=== PATIENT | male | born 1965 | race Caucasian/White ===

== ENCOUNTER → 2024-07-07 | Outpatient (CLI) | payer MEDICAID, SELFPAY ==
--- NOTE | 2024-07-07 13:45 | XR_ITS ---
Examination: MRI lumbar spine without contrast Date and time of exam: July 07, 2024 1357 hours Comparison December 09, 2021 INDICATIONS: Lower back pain radiating to both legs weakness in the leg 6 years after lifting injury Technique: Multiple MRI axial and sagittal sections lumbar spine. Sagittal T2-weighted images, TR 3500, TE 118 T1 weighted transverse sections, TR 688 T8.5, T2-weighted sagittal sections T1 weighted sagittal sections TR 621, TE 30 T2 axial sections, TR 4, 190, TE 84. Findings: Adequate alignment lumbar vertebral bodies on the lateral view No lumbar fracture Normal marrow signal lumbar vertebral bodies Mild to moderate distention posteriorly L5-S1 No spondylolisthesis Diffuse lumbar disc desiccation L5-S1 6 mm right paracentral disc bulge displacing the right S1 nerve root L4-L5 prominent facet arthropathy. L3-L4 no disc protrusion L2-L3 no disc protrusion L1-2 no disc protrusion IMPRESSION: L5-S1 6 mm central right paracentral disc bulge displacing the right S1 nerve root
== END | disposition home or self-care (01) ==
PROVIDERS: PCP Nurse Practitioner Family; Referring Provider Nurse Practitioner Family; Visit Provider Nurse Practitioner Family
DX: M51.370 Other intervertebral disc degeneration, lumbosacral region with discogenic back pain only (principal)
CPT/HCPCS: 72148

== ENCOUNTER → 2024-11-27 | Outpatient (CLI) | payer MEDICAID, SELFPAY ==
--- NOTE | 2024-11-27 10:00 | XR_ITS ---
Examination: CT chest, without intravenous contrast. Sagittal and coronal 2-D reconstructions. Exam date and time: November 27, 2024 1014 hours COMPARISON: March 20, 2023 INDICATIONS: Pulmonary nodules on chest CT January 19, 2024 including new 3 mm pulmonary nodule right upper lobe CTDI:vol (mGy) 21 DLP: (mGycm) 845 Technique: Multiple 3.0 mm axial sections of the chest to been obtained. Bone and lung density settings are obtained. Sagittal and coronal 2-D reconstructions have been obtained. Low dose protocols were performed. One or more of the following dose reduction techniques were used; automated exposure control, adjustment of the mA and/or KV according to patient size, use of iterative reconstruction technique. Findings: No thoracic aortic aneurysmal dilatation Pulmonary artery segments are not enlarged. No paratracheal tracheobronchial or bronchopulmonary adenopathy No new pulmonary nodules on the current study No interval pneumonia or pulmonary edema Fatty infiltration throughout the liver Splenomegaly AP dimension 15 cm Absent gallbladder IMPRESSION: No mediastinal lymphadenopathy No new pulmonary nodules compared with January 19, 2024
== END | disposition home or self-care (01) ==
PROVIDERS: PCP Nurse Practitioner Family; Referring Provider Nurse Practitioner Family; Visit Provider Nurse Practitioner Family
DX: R91.8 Other nonspecific abnormal finding of lung field (principal)
CPT/HCPCS: 71250